=== PATIENT | female | born 2000 | race Caucasian/White ===

== ENCOUNTER 2023-01-15 18:01 | Emergency (ER) | payer OTHER, SELFPAY ==
[2023-01-15 18:03] VITALS: BP 155/81; PULSE 81; RESP 18; O2SAT 99; BMI 34.5
[2023-01-15 19:13] VITALS: BP 135/72; PULSE 76; RESP 16; TEMP 36.7; O2SAT 100
[2023-01-15] MEDS: Rabies Vaccine (PCEC)/PF 1 ML VIAL IM (19:18)
[2023-01-15] MEDS: Rabies Immune Globulin/PF 900 UNIT/3 ML VIAL 2000 UNIT IM (19:19)
[2023-01-15] MEDS: Diphth,Pertus(ACell),Tet Adult 0.5 ML SYRINGE IM (19:19)
--- NOTE | 2023-01-15 19:30 | ED_ITS ---
HPI - General Adult General Chief complaint: Animal Bite Stated complaint: Dog bite Time Seen by Provider: 01/15/23 18:23 Source: patient Mode of arrival: ambulatory Limitations: no limitations History of Present Illness HPI narrative: 22-year-old female presents to ED for enema bite to left palm. 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 Patient was informed by dog's clinical engineering manager of the dog is not vaccinated against rabies. Patient has complete range of motion of finger and hands. Related Data Previous Rx's Medication Instructions Recorded amoxicillin 875 mg-potassium 1 tab PO BID 10 days #20 tabs 01/15/23 clavulanate 125 mg tablet Allergies Allergy/AdvReac Type Severity Reaction Status Date / Time lavender (Lavandula Allergy Anaphylaxis Verified 01/15/23 18:03 angustifolia) Sulfa (Sulfonamide Allergy Hives Verified 01/15/23 18:03 Antibiotics) Review of Systems Review of Systems: Dog bite to left hand Yes all other systems are reviewed and are negative PENDING SALE TO [facility] Social History Social History Advance Directives: No Advance Directives Information Provided: Yes Physical Exam ED Vital Signs: Vital Signs - 24 hr 01/15/23 18:03 01/15/23 19:13 Temperature 98.1 F Pulse Rate 81 76 Respiratory Rate 18 16 Blood Pressure 155/81 H 135/72 Pulse Oximetry 99 100 Oxygen Delivery Method Room Air Room Air BMI result Body Mass Index 34.5 Const General: cooperative, healthy appearing, comfortable, no acute distress, well developed, alert, awake and Physically active Orientation/consciousness: oriented to person, oriented to place, oriented to t yaneth and patient oriented x3 HENMT Head: Yes normal to inspection, Yes No palpable skull fracture present, Yes normocephalic, Yes atraumatic and No abrasion Eyes General: appearance normal, both eyes and all related structures Neck Neck: Yes normal visual inspection, Yes full ROM, Yes no lymphadenopathy, Yes no meningeal signs, Yes trachea midline, Yes supple, No anterior neck swelling and No tender Chest Chest palpation & inspection: normal inspection of the chest and normal palpation of entire chest wall Resp Effort & Inspection: normal respiratory effort and able to speak in complete sentences Auscultation: clear to auscultation bilaterally Cardio Jugular venous distension: no JVD Heart sounds: S1 normal heart sound present and S2 normal heart sound present GI Inspection: Yes normal to inspection and No abdominal wall ecchymosis Palpation (GI): Soft to palpation, not firm, nontender, no guarding and not rigid General: No CVA tenderness and Yes no CVA tenderness Back/Spine/Pelvis Back: no CVA tenderness, No CVA tenderness and No back tenderness Skin General skin exam: no rashes or lesions noted and elasticity normal Neuro General: oriented to person, oriented to place, oriented to time, patient oriented x3, gait normal, tone normal, moves all extremities, Normal light touch and pain sensation, no meningeal signs, no focal motor deficits and CN's II-XI intact bilaterally Extrem General: Yes normal to inspection and Yes full ROM Hand/finger images: 1. small puncture bite. Patient has complete range of motion of fingers palm and hand. No active bleeding. Motor/neuro/vascular exam intact of extremity Psych Appearance: grossly normal, well kempt and not disheveled Course Course Course Narrative: Tdap rabies vaccine and rabies immunoglobulin ordered Reevaluation(s) Reevaluation #1: Patient to be discharged with antibiotics. Puncture bite clean with sterile saline and Betadine iodine. Patient given instruction to return on scheduled today for rabies vaccine at short-term surgery Time: 19:34 Medications Administered Discontinued Medications Generic Name Dose Route Start Last Admin Trade Name Freq PRN Reason Stop Dose Admin Diphtheria/Tetanus/Acell Pertussis 0.5 ml 01/15/23 18:36 01/15/23 19:19 Diphth,Pertus(Acell),Tet Adult 0.5 Ml Syringe IM 01/15/23 18:37 0.5 ml .ONCE ONE Administration Rabies Immune Globulin 2,000 unit 01/15/23 18:29 01/15/23 19:19 Rabies Immune Globulin/Pf 900 Unit/3 Ml Vial 20 unit/kg (2000 unit) 01/15/23 18:30 2,000 unit IM Administration ONCE ONE Rabies Vaccine 1 ml 01/15/23 18:29 01/15/23 19:18 Rabies Vaccine (Pcec)/Pf 1 Ml Vial IM 01/15/23 18:30 1 ml .ONCE ONE Administration Medical Decision Making Medical Decision Making [facility] Narrative: 22 female presents to ED for dog bite to left hand. Dog unvaccinated Differential Diagnosis Differential Diagnoses: The differential diagnosis associated with the presen tation includes (Dog bite. ) Prescription Management I considered prescription management with: Antibiotic Discharge Plan Discharge Clinical Impression: Dog bite Patient Disposition: Home, Self-Care Instructions: Animal Bite (ED) Additional Instructions: Please follow-up with schedule appointments for short-term surgery for rabies vaccine. He will be discharged with antibiotics to prevent infection. Return to the ED immediately for any redness, swelling, pus discharge, foul odor, fever, chills, or any other concerning symptoms. Prescriptions: New amoxicillin-pot clavulanate 875-125 mg tablet 1 tab PO BID 10 Days Qty: 20 0RF Stand Alone Forms: Work/School Release Interventions: ED Discharge Assessment Last Done: 01/15/23 19:48 Discharge Date/Time: 01/15/23 19:48 Print Language: Syriac
== END 2023-01-15 19:48 | disposition home or self-care (01) ==
PROVIDERS: Emergency Provider Emergency Medicine
DX: S61.452A Open bite of left hand, initial encounter (principal); W54.0XXA Bitten by dog, initial encounter; Y93.F9 Activity, other caregiving; Y92.009 Unspecified place in unspecified non-institutional (private) residence as the place of occurrence of the external cause; Y99.0 Civilian activity done for income or pay; Z20.3 Contact with and (suspected) exposure to rabies; Z23 Encounter for immunization
CPT/HCPCS: 90375; 90471; 90472; 90675; 90715; 96372; 99283; 99284

== ENCOUNTER 2023-01-18 14:51 | Outpatient (REF) | payer OTHER, SELFPAY | END 2023-01-18 14:52 | disposition home or self-care (01) | LOC: HO.MDS 14:51 | PROVIDERS: Visit Provider Physician Assistant | DX: Z29.14 Encounter for prophylactic rabies immune globulin (principal); S61.452D Open bite of left hand, subsequent encounter; W54.0XXD Bitten by dog, subsequent encounter; Z20.3 Contact with and (suspected) exposure to rabies | CPT/HCPCS: 90675; 96372 ==

== ENCOUNTER 2023-01-22 14:58 | Outpatient (REF) | payer OTHER, SELFPAY | END 2023-01-22 14:59 | disposition home or self-care (01) | LOC: HO.MDS 14:58 | PROVIDERS: Visit Provider Physician Assistant | DX: Z29.14 Encounter for prophylactic rabies immune globulin (principal); S61.452D Open bite of left hand, subsequent encounter; W54.0XXD Bitten by dog, subsequent encounter; Z20.3 Contact with and (suspected) exposure to rabies | CPT/HCPCS: 90675; 96372 ==

== ENCOUNTER 2023-01-29 14:59 | Outpatient (REF) | payer OTHER, SELFPAY | END 2023-01-29 15:00 | disposition home or self-care (01) | LOC: HO.MDS 14:59 | PROVIDERS: Visit Provider Physician Assistant | DX: Z29.14 Encounter for prophylactic rabies immune globulin (principal); S61.452D Open bite of left hand, subsequent encounter; W54.0XXD Bitten by dog, subsequent encounter; Z20.3 Contact with and (suspected) exposure to rabies | CPT/HCPCS: 90471; 90675; 96372 ==

== ENCOUNTER 2023-08-31 01:03 | Emergency (ER) | payer OTHER, SELFPAY ==
--- NOTE | ~2023-08-31 | XR_ITS ---
EXAMINATION: XR ANKLE, RIGHT XR FOOT, RIGHT CLINICAL INDICATION: Pain after fall COMPARISON: None TECHNIQUE: 3 views of the right ankle. 3 views of the right foot. FINDINGS: Osseous alignment throughout the ankle and foot is anatomic. No acute fracture is seen. Mild soft tissue swelling noted laterally at the ankle. XR/XR foot RT 2V IMPRESSION: No fracture identified. Mild soft tissue swelling laterally at the ankle.
--- NOTE | ~2023-08-31 | XR_ITS ---
EXAMINATION: XR ANKLE, RIGHT XR FOOT, RIGHT CLINICAL INDICATION: Pain after fall COMPARISON: None TECHNIQUE: 3 views of the right ankle. 3 views of the right foot. FINDINGS: Osseous alignment throughout the ankle and foot is anatomic. No acute fracture is seen. Mild soft tissue swelling noted laterally at the ankle. XR/XR ankle RT 2V IMPRESSION: No fracture identified. Mild soft tissue swelling laterally at the ankle.
[2023-08-31 01:05] VITALS: BP 129/85; PULSE 89; RESP 18; TEMP 36.4; O2SAT 97; BMI 32.9
--- NOTE | 2023-08-31 01:22 | ED_ITS ---
HPI - General Adult General Chief complaint: Extremity Injury, Lower Stated complaint: Ankle inj/Work inj Time Seen by Provider: 08/31/23 01:16 Source: patient and RN notes reviewed Mode of arrival: ambulatory Limitations: no limitations History of Present Illness HPI narrative: 23-year-old female presents for evaluation of right ankle pain. 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 ankle describes an inversion injury she did not fall and hit her head or lose consciousness She has been ambulatory since the injury Her pain is mostly to the right lateral ankle and is a 04/21 Related Data Previous Rx's Medication Instructions Recorded amoxicillin 875 mg-potassium 1 tab PO BID 10 days #20 tabs 01/15/23 clavulanate 125 mg tablet Allergies Allergy/AdvReac Type Severity Reaction Status Date / Time lavender (Lavandula Allergy Anaphylaxis Verified 01/15/23 18:03 angustifolia) Sulfa (Sulfonamide Allergy Hives Verified 01/15/23 18:03 Antibiotics) Review of Systems Constitutional: Constitutional: Denies chills and Denies fever(s) Musculoskeletal: Musculoskeletal: Reports arthralgias, Reports joint swelling and Reports limited range of motion Physical Exam ED Vital Signs: Vital Signs - 24 hr 08/31/23 01:05 Temperature 97.6 F Pulse Rate 89 Respiratory Rate 18 Blood Pressure 129/85 Pulse Oximetry 97 Oxygen Delivery Method Room Air BMI result Body Mass Index 32.9 Const General: healthy appearing, comfortable, no acute distress, alert and awake Nutritional Appearance: well nourished Orientation/consciousness: patient oriented x3 HENMT Head: Yes normocephalic and Yes atraumatic Eyes Eyelids: Yes eyelids normal Conjunctivae: conjunctivae normal Sclerae: sclerae normal Corneas: corneas normal Pupils: Equal, round and reactive pupils present EOM: EOMs intact bilaterally Neck Neck: Yes full ROM Resp Effort & Inspection: normal respiratory effort, able to speak in complete sentences and not labored Skin General skin exam: elasticity normal Neuro General: patient oriented x3 Cranial nerves: Yes Equal, round and reactive pupils present and Yes Bilaterally intact EOM present Cognition (Neuro): normal cognition Extrem Other: patient has mild edema to the right lateral ankle. She has no right lateral ma lleolus tenderness but has tenderness to the right posterior talofibular ligament and anterior talofibular ligament. Medical Decision Making Medical Decision Making MDM Narrative: 23-year-old female presents for evaluation of right ankle and foot pain. X- rays ordered. exam most consistent with an ankle sprain. Patient declines crutches Differential Diagnosis Differential Diagnoses: The differential diagnosis associated with the p resentation includes ankle sprain Ankle fracture Contusion Dislocation Independent Interpretation I performed an independent interpretation of an: Plain X-Ray ( no obvious fracture of the right ankle or foot) Discharge Plan Discharge Clinical Impression: Ankle sprain and strain Patient Disposition: Home, Self-Care Instructions: Ankle Sprain (ED) Additional Instructions: use ibuprofen/ Tylenol as needed for pain. Your x-ray does not show any fractures. You have an ankle sprain elevate the leg above your heart while resting. Ice the area every 4 hours for 10-15 minutes Prescriptions: No Action amoxicillin-pot clavulanate 875-125 mg tablet 1 tab PO BID 10 Days Qty: 20 0RF Stand Alone Forms: Work/School Release
[2023-08-31 03:44] VITALS: BP 116/72; PULSE 78; RESP 18; O2SAT 99
== END 2023-08-31 03:47 | disposition home or self-care (01) ==
PROVIDERS: Emergency Provider Internal Medicine
DX: S93.401A Sprain of unspecified ligament of right ankle, initial encounter (principal); M25.571 Pain in right ankle and joints of right foot; X50.1XXA Overexertion from prolonged static or awkward postures, initial encounter; Y93.9 Activity, unspecified; Y92.9 Unspecified place or not applicable; Y99.9 Unspecified external cause status
CPT/HCPCS: 73600; 73620; 99283; 99284